=== PATIENT | female | born 1995 | race Caucasian/White ===

== ENCOUNTER 2020-04-28 20:48 | Emergency (ER) | payer OTHER ==
[2020-04-28 21:28] VITALS: O2SAT 99
[2020-04-28] MEDS ORDERED: Zofran 4 MG/2 ML VIAL ONE (21:33)
[2020-04-28] MEDS ORDERED: Sodium Chloride 0.9% 1000 ML 1,000 ML ONE (21:33)
[2020-04-28] MEDS: Sodium Chloride 0.9% 1000 ML 1,000 ML IV SCH (21:35)
[2020-04-28] MEDS: Zofran 4 MG/2 ML VIAL IV ONE (21:35)
[2020-04-28 21:39] LABS: BASOPHIL % 0.1 % (0.0-0.4); Basophil (Absolute #) 0.01 (0-0.4); Eosinophil % 0.1 % (0.00-5.0); Eosinophil (Absolute #) 0.02 (0-0.5); Hematocrit 35.6 % (35-47); Hemoglobin 11.8 gm/dl (12.0-16.0); Lymphocyte (Absolute #) 2.62 (1.0-4.6); Lymphocytes % 19.2 % (24.0-44.0); Mean Cell Volume 83.6 fl (78-100); Mean Corpuscular Hemoglobin 27.7 pg (26-32); Mean Corpuscular Hgb Concent. 33.1 g/dl (32-36); Mean Platelet Volume 9.7 fl (7.5-11.0); Monocyte (Absolute #) 0.67 (0.0-1.3); Monocytes % 4.9 % (0.0-12.0); Neutrophil % 75.7 % (36.0-66.0); Platelet Count 282 K/mm3 (150-450); Red Blood Count 4.26 M/mm3 (4.1-5.4); White Blood Count 13.6 K/mm3 (4.0-10.5)
[2020-04-28 21:48] LABS: ALKALINE PHOSPHATASE 93 U/L (38-126); ANION GAP 10.1 MEQ/L (5-15); BLOOD UREA NITROGEN 4 mg/dL (7-17); CHLORIDE 105 mmol/L (98-107); Calcium 9.1 mg/dL (8.4-10.2); Carbon Dioxide 25 mmol/L (22-30); EST GLOMERULAR FILTRATION RATE > 60.0 ML/MIN; Glucose 92 mg/dL (74-106); Potassium 3.1 mmol/L (3.5-5.1); SGOT/AST 17 U/L (14-36); SGPT/ALT 15 U/L (0-35); SODIUM 136 mmol/L (137-145); Total Protein 7.9 g/dL (6.3-8.2)
[2020-04-28] MEDS ORDERED: TYLENOL EXTRA STRENGTH 500 MG ONE (22:07)
[2020-04-28] MEDS: TYLENOL EXTRA STRENGTH 500 MG PO ONE (22:07)
--- NOTE | 2020-04-28 23:10 | ERPHSYRPT ---
- History of Present Illness Time Seen by Provider: 04/28/20 21:35 Source: patient Exam Limitations: no limitations Patient Subjective Stated Complaint: pt c/o abd pain Triage Nursing Assessment: pt c/o abd pain at umbilius and at times radiates do wn to vaginal area. Pt had ultrasound today as she is 20weeks and 3days , and ever since the US, pt has had abd pain due to the pressing of the US probe. abd soft, round with active bs x4 quad, tender at umbilicus only. pt states pain radiates to upper back. Physician History: Patient is a 25-year-old female presents to our ED with complaints of tenderness just over her umbilicus. Patient is 20 weeks and 3 days . Patient had an ultrasound today. 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 After the procedure patient experienced tenderness to the umbilical area. Pain is reproduced with light touch to the umbilicus. She occasionally feels a shooting sensation into her vagina. No vaginal discharge. No nausea or vomiting. No diarrhea. Patient called her [employer] physician who advised her to come to [facility] for labs and a pelvic exam. The pelvic exam was performed by the OB nurse. Please see nurses note for results of the pelvic exam. However this pelvic exam was conveyed to the referring [employer] physician who advised no further action. We ordered basic labs as per the request of patient's [employer] physician. Labs resulted as within normal limits. Patient denies blunt trauma. Pain is minimal at rest. Patient voices no other complaints or concerns at this time. Timing/Duration: today Severity: moderate Modifying Factors: Improves With: nothing Associated Symptoms: denies symptoms Allergies/Adverse Reactions: cephalexin monohydrate [From Keflex] Adverse Reaction (Mild, Verified 04/28/20 21:36) Hives Home Medications: No Reportable Medications [No Reported Medications] 12/04/19 [History] Hx Tetanus, Diphtheria Vaccination/Date Given: Yes Hx Influenza Vaccination/Date Given: No Hx Pneumococcal Vaccination/Date Given: No Immunizations Up to Date: Yes Travel Risk - International Travel Have you traveled outside of the country in past 3 weeks: No - Coronavirus Screening Are you exhibiting any of the following symptoms?: No Close contact with a COVID-19 positive Pt in past 14-21 Days: No - Review of Systems Constitutional: No Symptoms, No Fever, No Chills Eyes: No Symptoms Ears, Nose, & Throat: No Symptoms Respiratory: No Symptoms, No Cough, No Dyspnea Cardiac: No Symptoms, No Chest Pain, No Edema, No Syncope Abdominal/Gastrointestinal: No Symptoms, No Abdominal Pain, No Nausea, No Vomiting, No Diarrhea Genitourinary Symptoms: No Symptoms, No Dysuria Musculoskeletal: No Symptoms, No Back Pain, No Neck Pain Skin: No Symptoms, No Rash Neurological: No Symptoms, No Dizziness, No Focal Weakness, No Sensory Changes Psychological: No Symptoms Endocrine: No Symptoms Hematologic/Lymphatic: No Symptoms Immunological/Allergic: No Symptoms All Other Systems: Reviewed and Negative - Past Medical History Pertinent Past Medical History: Yes Neurological History: No Pertinent History ENT History: No Pertinent History Cardiac History: No Pertinent History Respiratory History: Asthma Endocrine Medical History: No Pertinent History Musculoskeletal History: Arthritis GI Medical History: GERD, Gallbladder Disease History: No Pertinent History Psycho-Social History: Anxiety, Depression, Other Female Reproductive Disorders: No Pertinent History Other Medical History: schizophrenia - Past Surgical History Past Surgical History: No Neuro Surgical History: No Pertinent History Cardiac: No Pertinent History Respiratory: No Pertinent History Gastrointestinal: Cholecystectomy Genitourinary: No Pertinent History Musculoskeletal: Orthopedic Surgery Female Surgical History: No Pertinent History Other Surgical History: bialteral thumb surgery - Social History Smoking Status: Former smoker How long have you smoked: age 13 Exposure to second hand smoke: Yes Drug Use: none Patient Lives Alone: No - Female History Hx Last Menstrual Period: 01/09/20 Hx Now: Yes Expected Date of Delivery: 09/12/20 Gestational Age: 20wks 3day - Nursing Vital Signs Nursing Vital Signs: Initial Vital Signs Temperature 98.3 F 04/28/20 21:27 Pulse Rate 81 04/28/20 21:27 Respiratory Rate 18 04/28/20 21:27 Blood Pressure 118/93 04/28/20 21:27 O2 Sat by Pulse Oximetry 99 04/28/20 21:27 Pain Scale Pain Intensity 10 - Physical Exam General Appearance: no apparent distress, alert Eye Exam: PERRL/EOMI, eyes nml inspection Ears, Nose, Throat Exam: normal ENT inspection, TMs normal, pharynx normal, moist mucous membranes Neck Exam: normal inspection, non-tender, supple, full range of motion Respiratory Exam: normal breath sounds, lungs clear, No respiratory distress Cardiovascular Exam: regular rate/rhythm, normal heart sounds, normal peripheral pulses Gastrointestinal/Abdomen Exam: soft, normal bowel sounds, other (Tenderness to the periumbilical region at the area of the ultrasound. The soft tissue/skin is tender to soft superficial touch. This reproduces patient's symptoms.), No tenderness, No mass Back Exam: normal inspection, normal range of motion, No CVA tenderness, No vertebral tenderness Extremity Exam: normal inspection, normal range of motion, pelvis stable Neurologic Exam: alert, oriented x 3, cooperative, normal mood/affect, nml cerebellar function, nml station & gait, sensation nml, No motor deficits Skin Exam: normal color, warm, dry, No rash Lymphatic Exam: No adenopathy SpO2 Interpretation: normal SpO2: 99 O2 Delivery: Room Air - Course Nursing assessment & vital signs reviewed: Yes Ordered Tests: Active Orders 24 hr Category Date Time Status IV Insertion STAT Care 04/28/20 21:29 Active CBC W DIFF Stat Lab 04/28/20 21:15 Completed CMP Stat Lab 04/28/20 21:15 Completed HCG QUALITATIVE,SERUM Stat Lab 04/28/20 21:15 Completed Wet Prep Stat Lab 04/28/20 21:30 Results Medication Summary Generic Name Dose Route Start Last Admin Trade Name Freq PRN Reason Stop Dose Admin Sodium Chloride 1,000 mls @ 100 mls/hr 04/28/20 21:30 04/28/20 21:35 Sodium Chloride 0.9% 1000 Ml IV 05/28/20 21:29 100 mls/hr .Q10H ARMANDO Administration Discontinued Medications Generic Name Dose Route Start Last Admin Trade Name Freq PRN Reason Stop Dose Admin Acetaminophen 1,000 mg 04/28/20 22:06 04/28/20 22:07 Tylenol Extra Strength 500 Mg PO 04/28/20 22:07 1,000 mg STAT ONE Administration Acetaminophen Confirm 04/28/20 22:07 Tylenol Extra Strength 500 Mg Administered 04/28/20 22:08 Dose 1,000 mg .ROUTE .STK-MED ONE Ondansetron HCl 4 mg 04/28/20 21:32 04/28/20 21:35 Zofran 4 Mg/2 Ml Vial IV 04/28/20 21:33 4 mg STAT ONE Administration Ondansetron HCl Confirm 04/28/20 21:33 Zofran 4 Mg/2 Ml Vial Administered 04/28/20 21:34 Dose 4 mg .ROUTE .STK-MED ONE Lab/Rad Data: Laboratory Result Diagrams 04/28/20 21:15 04/28/20 21:15 Laboratory Results 04/28/20 04/28/20 04/28/20 Range/Units 21:30 21:15 21:15 WBC (4.0-10.5) K/mm3 RBC (4.1-5.4) M/mm3 Hgb (12.0-16.0) gm/dl Hct (35-47) % MCV (78-100) fl MCH (26-32) pg MCHC (32-36) g/dl RDW (11.5-14.0) % Plt Count (150-450) K/mm3 MPV (7.5-11.0) fl Gran % (36.0-66.0) % Eos # (Auto) (0-0.5) Absolute Lymphs (auto) (1.0-4.6) Absolute Monos (auto) (0.0-1.3) Lymphocytes % (24.0-44.0) % Monocytes % (0.0-12.0) % Eosinophils % (0.00-5.0) % Basophils % (0.0-0.4) % Absolute Granulocytes (1.4-6.9) Basophils # (0-0.4) Sodium 136 L (137-145) mmol/L Potassium 3.1 L (3.5-5.1) mmol/L Chloride 105 (98-107) mmol/L Carbon Dioxide 25 (22-30) mmol/L Anion Gap 10.1 (5-15) MEQ/L BUN 4 L (7-17) mg/dL Creatinine 0.40 L (0.52-1.04) mg/dL Estimated GFR > 60.0 ML/MIN Glucose 92 (74-106) mg/dL Calcium 9.1 (8.4-10.2) mg/dL Total Bilirubin 0.40 (0.2-1.3) mg/dL AST 17 (14-36) U/L ALT 15 (0-35) U/L Alkaline Phosphatase 93 (38-126) U/L Serum Total Protein 7.9 (6.3-8.2) g/dL Albumin 4.0 (3.5-5.0) g/dL Serum , Qual POSITIVE (Negative) Urinalys Dipstick Clnc Not Reportable Urine Color YELLOW (YELLOW) Urine Appearance SLIGHTLY CLOUDY (CLEAR) Urine pH 6.5 (5-6) Ur Specific Matheson 1.025 (1.005-1.025) POC Urine Protein Conf NEGATIVE (Negative) Urine Ketones LARGE-80 (NEGATIVE) Urine Nitrite NEGATIVE (NEGATIVE) Urine Bilirubin SMALL (NEGATIVE) Urine Urobilinogen 0.2 (0-1) mg/dL Urine Leukocytes NEGATIVE (NEGATIVE) Urine WBC (Auto) 0-2 (0-5) /HPF Urine RBC (Auto) 0-2 (0-2) /HPF U Epithel Cells (Auto) RARE (FEW) /HPF Urine Bacteria (Auto) RARE (NEGATIVE) /HPF Urine RBC NEGATIVE (0-5) James/ul Urine Mucus (Auto) MODERATE (NEGATIVE) /HPF Ur Culture Indicated? NO Urine Glucose NEGATIVE (NEGATIVE) mg/dL WBC (Wet Prep) Pending RBC (Wet Prep) Pending Epi Cells (Wet Prep) Pending Bacteria (Wet Prep) Pending Clue Cells (Wet Prep) Pending Trichomonas (Wet Prep) Pending Budding Yeast (Wet Prp) Pending 04/28/20 Range/Units 21:15 WBC 13.6 H (4.0-10.5) K/mm3 RBC 4.26 (4.1-5.4) M/mm3 Hgb 11.8 L (12.0-16.0) gm/dl Hct 35.6 (35-47) % MCV 83.6 (78-100) fl MCH 27.7 (26-32) pg MCHC 33.1 (32-36) g/dl RDW 14.0 (11.5-14.0) % Plt Count 282 (150-450) K/mm3 MPV 9.7 (7.5-11.0) fl Gran % 75.7 H (36.0-66.0) % Eos # (Auto) 0.02 (0-0.5) Absolute Lymphs (auto) 2.62 (1.0-4.6) Absolute Monos (auto) 0.67 (0.0-1.3) Lymphocytes % 19.2 L (24.0-44.0) % Monocytes % 4.9 (0.0-12.0) % Eosinophils % 0.1 (0.00-5.0) % Basophils % 0.1 (0.0-0.4) % Absolute Granulocytes 10.30 H (1.4-6.9) Basophils # 0.01 (0-0.4) Sodium (137-145) mmol/L Potassium (3.5-5.1) mmol/L Chloride (98-107) mmol/L Carbon Dioxide (22-30) mmol/L Anion Gap (5-15) MEQ/L BUN (7-17) mg/dL Creatinine (0.52-1.04) mg/dL Estimated GFR ML/MIN Glucose (74-106) mg/dL Calcium (8.4-10.2) mg/dL Total Bilirubin (0.2-1.3) mg/dL AST (14-36) U/L ALT (0-35) U/L Alkaline Phosphatase (38-126) U/L Serum Total Protein (6.3-8.2) g/dL Albumin (3.5-5.0) g/dL Serum , Qual (Negative) Urinalys Dipstick Clnc Urine Color (YELLOW) Urine Appearance (CLEAR) Urine pH (5-6) Ur Specific Matheson (1.005-1.025) POC Urine Protein Conf (Negative) Urine Ketones (NEGATIVE) Urine Nitrite (NEGATIVE) Urine Bilirubin (NEGATIVE) Urine Urobilinogen (0-1) mg/dL Urine Leukocytes (NEGATIVE) Urine WBC (Auto) (0-5) /HPF Urine RBC (Auto) (0-2) /HPF U Epithel Cells (Auto) (FEW) /HPF Urine Bacteria (Auto) (NEGATIVE) /HPF Urine RBC (0-5) James/ul Urine Mucus (Auto) (NEGATIVE) /HPF Ur Culture Indicated? Urine Glucose (NEGATIVE) mg/dL WBC (Wet Prep) RBC (Wet Prep) Epi Cells (Wet Prep) Bacteria (Wet Prep) Clue Cells (Wet Prep) Trichomonas (Wet Prep) Budding Yeast (Wet Prp) - Progress Progress: improved Progress Note: 04/28/20 23:10 Pelvic ultrasound was initially ordered however Dr. Perez felt it was not necessary as patient had an ultrasound earlier in the day. The labs are reviewed with Dr. Pedersen who feels patient is appropriate for discharge. Patient reassessed. She is comfortable. Plan of care discussed with patient. She agrees to follow-up with her [employer] doctor within 48 hours for reevaluation. Discussed with : Diallo Will see patient in: office Counseled pt/family regarding: lab results, diagnosis, need for follow-up - Departure Departure Disposition: Home Clinical Impression: Abdominal pain Condition: Stable Critical Care Time: No Referrals: SARITA PEREZ DO [ACTIVE STAFF] - Additional Instructions: Discharge/Care Plan LARISSA GONZALEZ was seen on 04/28/20 in the Emergency Room. The patient was counseled regarding Diagnosis,Lab results, Imaging studies, need for follow up and when to return to the Emergency Room. Prescriptions given: Discharge Note I have spoken with the patient and/or caregivers. I have explained the patient's condition, diagnosis and treatment plan based on the information available to me at this time. I have answered the patient's and/or caregiver's questions and addressed any concerns. The patient and/or caregivers have as good understanding of the patient's diagnosis, condition and treatment plan as can be expected at this point. The vital signs have been stable. The patient's condition is stable and appropriate for discharge from the emergency department. The patient will pursue further outpatient evaluation with the primary care physician or other designated or consulting physician as outlined in the discharge instructions. The patient and/or caregivers are agreeable to this plan of care and follow-up instructions have been explained in detail. The patient and/or caregivers have received these instruction. The patient/and or caregivers are aware that any significant change in condition or worsening of symptoms should prompt an immediate return to this or the closest emergency department or call 911.
[2020-04-28 23:15] LABS: CHLAMYDIA DNA NOT DETECTED (NEGATIVE); GC DNA Probe NOT DETECTED (NEGATIVE)
[2020-04-28 23:47] VITALS: BP 115/62; PULSE 84
== END 2020-04-28 23:50 | disposition home or self-care (01) ==
LOC: ED 20:48
DX: R10.9 Unspecified abdominal pain (principal)
CPT/HCPCS: 36000; 36415; 76805; 80053; 81015; 81025; 82105; 85025; 87210; 87491; 87591; 96374; 99284; J2405; A9270-GY